=== PATIENT | female | born 1955 | race Caucasian/White ===

== ENCOUNTER → 2018-01-19 | Outpatient (CLI) | payer OTHER ==
[~2018-01-19] MED LIST: ASPI-496 PO; CALCIUM PO; FISH OIL PO; HYDR-3237 PO; LEVO50TA PO; RED600CA2 PO; SUPER B COMPLEX; VITAMIN D3 PO
== END | disposition home or self-care (01) ==
LOC: CFH 14:08
PROVIDERS: ATTEND Obstetrics & Gynecology Maternal & Fetal Medicine
DX: Z12.31 Encounter for screening mammogram for malignant neoplasm of breast (principal)
CPT/HCPCS: 77063; 77067

== ENCOUNTER → 2019-01-29 | Outpatient (CLI) | payer MEDICARE, OTHER | END | disposition home or self-care (01) | LOC: CFH 10:53 | PROVIDERS: ATTEND Family Medicine | DX: Z12.31 Encounter for screening mammogram for malignant neoplasm of breast (principal) | CPT/HCPCS: 77063; 77067 ==

== ENCOUNTER → 2020-03-24 | Outpatient (CLI) | payer MEDICARE, OTHER | END | disposition home or self-care (01) | LOC: CFH 09:56 | PROVIDERS: ATTEND Obstetrics & Gynecology Maternal & Fetal Medicine | DX: Z12.31 Encounter for screening mammogram for malignant neoplasm of breast (principal) | CPT/HCPCS: 77063; 77067 ==

== ENCOUNTER → 2020-05-05 | Outpatient (CLI) | payer MEDICARE, OTHER ==
[~2020-05-05] MED LIST changes: +ALBU8.5H8 INH; +ALLERGY INJECTIONS; +AMMO225L5 TP; +ATOR10TA9 PO; +CALC1CAP8 PO; +CARB1DRO EACHEYE; +CETI10TA26 PO; +CHOL10003 PO; +FLUT1AER INH; +LEVO75TA PO; +MAGNESIUM PO; +MONT10TA6 PO; +MULT-516 PO; +NAPR220C2 PO; +NEO/3.5O7 EACHEYE; +OMEG1CAP6 PO; +TOBR5DRO14 EACHEYE; +VIT1CAPS42 PO
[2020-05-05 11:31] LABS: BASOPHILS # (AUTO) 0.03 x10^3/uL (0-0.1); BASOPHILS % (AUTO) 1 % (0-1); EOSINOPHILS % (AUTO) 2 % (1-7); LYMPHOCYTES # (AUTO) 1.48 x10^3/uL (1-3.4); LYMPHOCYTES % (AUTO) 23 % (22-44); MD NO; MEAN CORPUSCULAR HEMOGLOBIN 30.1 pg (27.0-34.8); MEAN CORPUSCULAR HGB CONC 33.3 g/dL (32.4-35.8); MEAN CORPUSCULAR VOLUME 90.4 fL (80-100); MEAN PLATELET VOLUME 9.4 fL (7.4-10.4); MONOCYTES % (AUTO) 6 % (2-9); NEUTROPHILS # (AUTO) 4.43 x10^3/uL (1.8-6.8); NEUTROPHILS % (AUTO) 69 % (42-75); PLATELET COUNT 280 x10^3/uL (130-400); RED BLOOD COUNT 5.19 x10^6/uL (3.82-5.3); RED CELL DISTRIBUTION WIDTH 13.3 % (9.6-15.2)
[2020-05-05 11:39] LABS: INTERNATIONAL NORMALIZED RATIO 0.93 (0.93-1.1); PROTHROMBIN TIME 9.9 Seconds (9.6-11.5)
[2020-05-05 11:43] LABS: CHLORIDE 108 mmol/L (98-107)
[2020-05-05 11:52] LABS: ALANINE AMINOTRANSFERASE 31 U/L (12-78); ALBUMIN 4.3 g/dL (3.4-5.0); ALKALINE PHOSPHATASE 97 U/L (45-117); ANION GAP 7 mmol/L (5-15); BILIRUBIN,TOTAL 0.5 mg/dL (0.2-1.0); CALCIUM 9.1 mg/dL (8.5-10.1); CREATININE 0.92 mg/dL (0.55-1.02); TOTAL PROTEIN 8.1 g/dL (6.4-8.2)
== END | disposition home or self-care (01) ==
LOC: STAR 10:08
PROVIDERS: ATTEND Specialist
DX: Z01.818 Encounter for other preprocedural examination (principal); N83.209 Unspecified ovarian cyst, unspecified side; R94.31 Abnormal electrocardiogram [ECG] [EKG]; Z85.038 Personal history of other malignant neoplasm of large intestine; Z80.41 Family history of malignant neoplasm of ovary
CPT/HCPCS: 36415; 71046; 80053; 85025; 85610; 85730; 93005

== ENCOUNTER 2020-05-09 11:47 | Day surgery (SDC) | payer MEDICARE, OTHER ==
[~2020-05-09] VITALS: Ht 170.2 cm; Wt 74.0 kg
[2020-05-09] MEDS ORDERED: LACTATED RINGERS 1,000 ML IV SCH (12:13)
[2020-05-09] MEDS ORDERED: CHLORHEXIDINE 15 ML UDC MM ONE (12:30)
[2020-05-09] MEDS ORDERED: CEFOTETAN PMX 2GM/50ML 50 ML IV ONE (12:30)
[2020-05-09 12:38] VITALS: BP 126/88
[2020-05-09] MEDS ORDERED: FENTANYL PF 100 MCG/2ML ONE (15:04)
[2020-05-09] MEDS ORDERED: MIDAZOLAM 1 MG/ML, 2ML ONE (15:04)
[2020-05-09] MEDS ORDERED: DEXAMETHASONE 4 MG/ML, 1ML ONE (15:06)
[2020-05-09] MEDS ORDERED: PROPOFOL 10 MG/ML, 20ML ONE (15:06)
[2020-05-09] MEDS ORDERED: ONDANSETRON 2MG/ML, 2ML ONE (15:06)
[2020-05-09] MEDS ORDERED: EPHEDRINE 50 MG/ML, 1ML IVPush PRN (15:30)
[2020-05-09] MEDS ORDERED: PROMETHAZINE 25 MG/ML, 1ML IVPush PRN (15:30)
[2020-05-09] MEDS ORDERED: DIAZEPAM 5 MG/ML, 2ML IVPush PRN (15:30)
[2020-05-09] MEDS ORDERED: MIDAZOLAM 1 MG/ML, 2ML IV PRN (15:30)
[2020-05-09] MEDS ORDERED: HYDROmorphone 1 MG/ML, 1ML INJ IVPush PRN (15:30)
[2020-05-09] MEDS ORDERED: LABETALOL 5MG/ML, 20ML IV PRN (15:30)
[2020-05-09] MEDS ORDERED: PROMETHAZINE 12.5 MG SUPP PR PRN (15:30)
[2020-05-09] MEDS ORDERED: FENTANYL PF 100 MCG/2ML IV PRN (15:30)
[2020-05-09] MEDS ORDERED: OXYcodone 5 MG/5 ML ORAL.SOL UDC PO PRN (15:30)
[2020-05-09] MEDS ORDERED: MEPERIDINE/PF 25MG/0.5ML IVPush PRN (15:30)
[2020-05-09] MEDS ORDERED: hydrALAzine 20 MG/ML, 1ML IV PRN (15:30)
[2020-05-09] MEDS ORDERED: ONDANSETRON 2MG/ML, 2ML IVPush PRN (15:30)
[2020-05-09] MEDS ORDERED: DIPHENHYDRAMINE 50 MG/ML, 1ML IVPush PRN (15:30)
[2020-05-09] MEDS ORDERED: ALBUTEROL SULFATE 2.5 MG/3 ML NPPB PRN (15:30)
== END 2020-05-09 18:00 | disposition home or self-care (01) ==
LOC: OUT 11:47
PROVIDERS: ATTEND Specialist
DX: N95.0 Postmenopausal bleeding (principal); Z11.59 Encounter for screening for other viral diseases; N85.8 Other specified noninflammatory disorders of uterus; E78.00 Pure hypercholesterolemia, unspecified; J45.909 Unspecified asthma, uncomplicated; E03.9 Hypothyroidism, unspecified; M19.90 Unspecified osteoarthritis, unspecified site; Z90.49 Acquired absence of other specified parts of digestive tract; Z79.82 Long term (current) use of aspirin; Z79.899 Other long term (current) drug therapy; Z91.040 Latex allergy status; Z88.8 Allergy status to other drugs, medicaments and biological substances; Z91.048 Other nonmedicinal substance allergy status; Z98.890 Other specified postprocedural states; Z85.038 Personal history of other malignant neoplasm of large intestine; Z72.89 Other problems related to lifestyle; Z82.49 Family history of ischemic heart disease and other diseases of the circulatory system; Z83.3 Family history of diabetes mellitus; Z80.41 Family history of malignant neoplasm of ovary
CPT/HCPCS: 36415; 58120; 87635; 88305; J1100; J2250; J2405; J2704; J3010; J3490; J7120

== ENCOUNTER → 2020-07-27 | Outpatient (CLI) | payer MEDICARE, OTHER ==
[~2020-07-27] MED LIST changes: -CETI10TA26 PO; +CETI10TA76 PO
[2020-07-27 09:58] LABS: BASOPHILS # (AUTO) 0.01 x10^3/uL (0-0.1); BASOPHILS % (AUTO) 0 % (0-1); EOSINOPHILS # (AUTO) 0.09 x10^3/uL (0-0.4); EOSINOPHILS % (AUTO) 1 % (1-7); LYMPHOCYTES % (AUTO) 23 % (22-44); MD NO; MEAN CORPUSCULAR HEMOGLOBIN 29.6 pg (27.0-34.8); MEAN CORPUSCULAR HGB CONC 32.8 g/dL (32.4-35.8); MEAN CORPUSCULAR VOLUME 90.4 fL (80-100); MEAN PLATELET VOLUME 9.5 fL (7.4-10.4); MONOCYTES # (AUTO) 0.46 x10^3/uL (0.2-0.8); MONOCYTES % (AUTO) 7 % (2-9); NEUTROPHILS # (AUTO) 4.55 x10^3/uL (1.8-6.8); NEUTROPHILS % (AUTO) 69 % (42-75); PLATELET COUNT 254 x10^3/uL (130-400); RED BLOOD COUNT 5.34 x10^6/uL (3.82-5.3); RED CELL DISTRIBUTION WIDTH 13.7 % (9.6-15.2)
[2020-07-27 10:06] LABS: INTERNATIONAL NORMALIZED RATIO 0.95 (0.93-1.1); PROTHROMBIN TIME 9.8 Seconds (9.6-11.5)
[2020-07-27 10:07] LABS: ALBUMIN 4.3 g/dL (3.4-5.0); ANION GAP 4 mmol/L (5-15); CALCIUM 9.6 mg/dL (8.5-10.1); CHLORIDE 108 mmol/L (98-107)
[2020-07-27 10:11] LABS: ALANINE AMINOTRANSFERASE 26 U/L (12-78); ALKALINE PHOSPHATASE 93 U/L (45-117); BILIRUBIN,TOTAL 0.6 mg/dL (0.2-1.0); CREATININE 0.92 mg/dL (0.55-1.02); TOTAL PROTEIN 7.7 g/dL (6.4-8.2)
== END | disposition home or self-care (01) ==
LOC: STAR 08:03
PROVIDERS: ATTEND Specialist
DX: Z01.818 Encounter for other preprocedural examination (principal); N83.209 Unspecified ovarian cyst, unspecified side; I21.29 ST elevation (STEMI) myocardial infarction involving other sites; Z85.038 Personal history of other malignant neoplasm of large intestine; Z80.41 Family history of malignant neoplasm of ovary
CPT/HCPCS: 36415; 80053; 85025; 85610; 85730; 86304; 93005

== ENCOUNTER → 2020-08-04 | Outpatient (CLI) | payer MEDICARE, OTHER | END | disposition home or self-care (01) | LOC: STAR 11:40 | PROVIDERS: ATTEND Anesthesiology | DX: Z01.812 Encounter for preprocedural laboratory examination (principal); Z20.828 Contact with and (suspected) exposure to other viral communicable diseases | CPT/HCPCS: 36415; 87635 ==

== ENCOUNTER 2020-08-08 10:13 | Observation (INO) | payer MEDICARE, OTHER ==
[~2020-08-08] VITALS: Ht 170.2 cm; Wt 79.4 kg
[~2020-08-08 10:13] MED LIST changes: +BUPIVACAINE/PF 0.25% ONE; +EPINEPHRINE 1 MG/ML, 1ML ONE
[2020-08-08] MEDS ORDERED: CHLORHEXIDINE 15 ML UDC MM ONE (11:00)
[2020-08-08 11:02] VITALS: BP 148/87
[2020-08-08] MEDS ORDERED: MIDAZOLAM 1 MG/ML, 2ML ONE (11:58)
[2020-08-08] MEDS ORDERED: FENTANYL PF 250 MCG/5ML ONE ×2 (11:58→15:17)
[2020-08-08] MEDS ORDERED: ONDANSETRON 2MG/ML, 2ML ONE (11:59)
[2020-08-08] MEDS ORDERED: GLYCOPYRROLATE 0.2MG/1ML, 5ML ONE (11:59)
[2020-08-08] MEDS ORDERED: NEOSTIGMINE 1 MG/ML, 10ML ONE (11:59)
[2020-08-08] MEDS ORDERED: CEFAZOLIN 1,000 MG ONE (11:59)
[2020-08-08] MEDS ORDERED: PROPOFOL 10 MG/ML, 20ML ONE (11:59)
[2020-08-08] MEDS ORDERED: DEXAMETHASONE 4 MG/ML, 1ML ONE (11:59)
[2020-08-08] MEDS ORDERED: CEFOTETAN PMX 2GM/50ML 50 ML IV ONE (12:00)
[2020-08-08] MEDS ORDERED: LACTATED RINGERS 1,000 ML IV SCH (12:00)
[2020-08-08] MEDS ORDERED: ACETAMINOPHEN 325 MG TABLET PO PRN (14:00)
[2020-08-08] MEDS ORDERED: OXYcodone 5 MG/5 ML ORAL.SOL UDC PO PRN (14:00)
[2020-08-08] MEDS ORDERED: MEPERIDINE/PF 25MG/0.5ML IVPush PRN (14:00)
[2020-08-08] MEDS ORDERED: LABETALOL 5MG/ML, 20ML IV PRN (14:00)
[2020-08-08] MEDS ORDERED: PROMETHAZINE 25 MG/ML, 1ML IVPush PRN (14:00)
[2020-08-08] MEDS ORDERED: HYDROmorphone 1 MG/ML, 1ML INJ IVPush PRN (14:00)
[2020-08-08] MEDS ORDERED: HALOPERIDOL 5 MG/ML IV PRN (14:00)
[2020-08-08] MEDS ORDERED: morphine SULFATE 10 MG/ML, 1ML IVPush PRN (14:00)
[2020-08-08] MEDS ORDERED: hydrALAzine 20 MG/ML, 1ML IV PRN (14:00)
[2020-08-08] MEDS ORDERED: CEFOTETAN 2 GM ONE (14:15)
[2020-08-08] MEDS ORDERED: ROCURONIUM 10 MG/ML,10ML ONE (14:15)
[2020-08-08] MEDS ORDERED: SUGAMMADEX 200 MG/2 ML IVPush ONE (16:23)
[2020-08-08] MEDS ORDERED: ACETAMINOPHEN 650 MG/20.3 ML UDC ONE (16:43)
[2020-08-08] MEDS ORDERED: FENTANYL PF 100 MCG/2ML ONE ×2 (16:43→17:06)
[2020-08-08] MEDS ORDERED: OXYcodone 5 MG/5 ML ORAL.SOL UDC ONE (16:43)
[2020-08-08] MEDS: FENTANYL PF 100 MCG/2ML IV PRN ×6 (16:55→17:25)
[2020-08-08] MEDS ORDERED: SODIUM CHLORIDE 0.9% 1,000ML IVBOLUS ONE (19:00)
[2020-08-08 19:25] VITALS: BP 148/77
[2020-08-08] MEDS ORDERED: ATORVASTATIN 10 MG TABLET PO SCH (22:30)
[2020-08-08] MEDS ORDERED: MONTELUKAST 10 MG TABLET PO SCH (22:30)
[2020-08-08] MEDS ORDERED: ONDANSETRON ODT 4 MG PO PRN (22:30)
[2020-08-08] MEDS ORDERED: OXYcodone/APAP 7.5/325MG TABLET ONE (22:52)
[2020-08-08] MEDS ORDERED: ATORVASTATIN 10 MG TABLET ONE (22:52)
[2020-08-08] MEDS ORDERED: MONTELUKAST 10 MG TABLET ONE (22:52)
[2020-08-08] MEDS: OXYcodone/APAP 7.5/325MG TABLET PO PRN (22:54)
[2020-08-09 00:22] VITALS: BP 127/71
[2020-08-09 04:20] VITALS: BP 114/69
[2020-08-09] MEDS ORDERED: LEVOTHYROXINE 50 MCG TABLET PO SCH (06:00)
[2020-08-09] MEDS: OXYcodone/APAP 7.5/325MG TABLET PO PRN (06:22)
[2020-08-09 08:00] VITALS: BP 105/56
[2020-08-09] MEDS ORDERED: ASPIRIN 81 MG TABLET CHEW PO SCH (09:00)
[2020-08-09 09:29] LABS: BASOPHILS # (AUTO) 0.03 x10^3/uL (0-0.1); BASOPHILS % (AUTO) 0 % (0-1); EOSINOPHILS # (AUTO) 0.06 x10^3/uL (0-0.4); EOSINOPHILS % (AUTO) 1 % (1-7); LYMPHOCYTES # (AUTO) 1.19 x10^3/uL (1-3.4); LYMPHOCYTES % (AUTO) 11 % (22-44); MD NO; MEAN CORPUSCULAR HEMOGLOBIN 30.1 pg (27.0-34.8); MEAN PLATELET VOLUME 9.6 fL (7.4-10.4); MONOCYTES # (AUTO) 0.74 x10^3/uL (0.2-0.8); MONOCYTES % (AUTO) 7 % (2-9); NEUTROPHILS # (AUTO) 9.26 x10^3/uL (1.8-6.8); NEUTROPHILS % (AUTO) 82 % (42-75); PLATELET COUNT 248 x10^3/uL (130-400); RED BLOOD COUNT 4.73 x10^6/uL (3.82-5.3); RED CELL DISTRIBUTION WIDTH 13.6 % (9.6-15.2)
[2020-08-09 09:40] LABS: ANION GAP 6 mmol/L (5-15); CALCIUM 8.6 mg/dL (8.5-10.1); CHLORIDE 107 mmol/L (98-107); CREATININE 0.98 mg/dL (0.55-1.02)
[2020-08-09 09:52] VITALS: BP 117/69
== END 2020-08-09 10:20 | disposition home or self-care (01) ==
LOC: OUT 10:13 → 4NE 18:08 → OUT 08-09 00:10 → 4NE 08-09 00:12
PROVIDERS: ADMIT Specialist; ATTEND Specialist
DX: N83.202 Unspecified ovarian cyst, left side (principal); N84.0 Polyp of corpus uteri; J45.909 Unspecified asthma, uncomplicated; E03.9 Hypothyroidism, unspecified; E78.00 Pure hypercholesterolemia, unspecified; M13.80 Other specified arthritis, unspecified site; M51.9 Unspecified thoracic, thoracolumbar and lumbosacral intervertebral disc disorder; R09.02 Hypoxemia; Z87.39 Personal history of other diseases of the musculoskeletal system and connective tissue; Z85.038 Personal history of other malignant neoplasm of large intestine; Z79.899 Other long term (current) drug therapy; Z90.710 Acquired absence of both cervix and uterus
CPT/HCPCS: 36415; 58552; 74018; 80048; 85025; 86850; 86900; 86923; 88112; 88305; 88307; 88329; 88331; G0378; J0171; J0690; J1100; J2250; J2405; J2704; J2710; J3010; J3490; J7120

== ENCOUNTER → 2021-03-28 | Outpatient (CLI) | payer MEDICARE, OTHER ==
[~2021-03-28] MED LIST changes: -BUPIVACAINE/PF 0.25% ONE; -EPINEPHRINE 1 MG/ML, 1ML ONE
== END | disposition home or self-care (01) ==
LOC: CFH 07:52
PROVIDERS: ATTEND Obstetrics & Gynecology Maternal & Fetal Medicine
DX: Z12.31 Encounter for screening mammogram for malignant neoplasm of breast (principal)
CPT/HCPCS: 77063; 77067